=== PATIENT | male | born 1980 | race Caucasian/White ===

== ENCOUNTER 2023-04-25 17:50 | Emergency (ER) | payer SELFPAY ==
[~2023-04-25] VITALS: Ht 180.3 cm; Wt 104.3 kg
[2023-04-25 17:59] VITALS: BP 124/74; PULSE 72; RESP 16; TEMP 97.8; O2SAT 99
[2023-04-25] MEDS ORDERED: TETRACAINE HCL/PF 0.5% OPTH 4 ML BTL OP ONE (18:30)
[2023-04-25] MEDS ORDERED: FLUORESCEIN OPTH STRIP 1 MG OP ONE (18:30)
[2023-04-25] MEDS ORDERED: [UNRECOGNIZED DRUG - OTHER] OP (18:49)
== END 2023-04-25 19:07 | disposition home or self-care (01) ==
LOC: MED 17:50
DX: H11.002 Unspecified pterygium of left eye (principal); Z79.899 Other long term (current) drug therapy
CPT/HCPCS: 99283